=== PATIENT | female | born 1985 | race Caucasian/White ===

== ENCOUNTER → 2020-09-10 | Outpatient (CLI) | payer OTHER ==
[~2020-09-10] MED LIST: CYCL10 PO; DOC250 PO; IBUP800 PO; MULVITMINE PO; ONDA4ODT MM
[2020-09-12 11:10] LABS: HPV 16 Negative (Negative); HPV 18 Negative (Negative); HPV OTHER HR TYPES Negative (Negative)
== END | disposition home or self-care (01) ==
LOC: LAB SHORT 11:20 → LAB 11:20
PROVIDERS: Obstetrics & Gynecology
DX: Z12.4 Encounter for screening for malignant neoplasm of cervix (principal)
CPT/HCPCS: 87624; G0123

== ENCOUNTER 2024-09-22 07:13 | Day surgery (SDC) | payer OTHER ==
[2024-09-22] VITALS (11 sets, daily range): BP systolic 90–112; BP diastolic 53–67
[~2024-09-22] VITALS: Ht 167 cm; Wt 72.6 kg
--- NOTE | 2024-09-22 08:37 | NUR ---
Ambulatory in Day Surgery History, Chart, Medications and Allergies reviewed before start of procedure.Patient confirms NPO status and agrees with scheduled surgery. Patient reports completing Chlorhexadine shower X2 prior to admission to hospital.
[2024-09-22] MEDS ORDERED: CeFAZolin Sodium 2,000 MG in NS 100 ML IV SCH (08:40)
[2024-09-22] MEDS ORDERED: Bupivacaine 0.5% W/EPI 1:200000 SDV 30 ML Vial ONE (10:08)
[2024-09-22] MEDS ORDERED: HYDROmorphone HCl/Pf 1MG SYR ONE ×2 (10:11→10:35)
[2024-09-22] MEDS ORDERED: Rocuronium Bromide 10 MG/ML 5ML Injection IV ONE (10:12)
[2024-09-22] MEDS ORDERED: Midazolam HCl 1MG / ML 2ML Vial ONE (10:12)
[2024-09-22] MEDS ORDERED: FentaNYL Citrate 50 MCG/ML 2 ML Injection ONE (10:12)
[2024-09-22] MEDS ORDERED: Dexamethasone Sod Phos 10 MG/ML 1ML VIAL ONE (10:33)
[2024-09-22] MEDS ORDERED: HYDROmorphone HCl/Pf 1MG SYR IV PRN ×2 (11:00)
[2024-09-22] MEDS ORDERED: Ondansetron HCl 2 MG / ML 2ML Vial IV PRN ×2 (11:00→12:05)
[2024-09-22] MEDS ORDERED: FentaNYL Citrate 50 MCG/ML 2 ML Injection IV PRN ×3 (11:00→12:00)
[2024-09-22] MEDS ORDERED: Ondansetron HCl 2 MG / ML 2ML Vial ONE ×2 (11:31→12:00)
[2024-09-22] MEDS ORDERED: Sugammadex Sodium 200 MG/2ML SDV (100 MG/ML) ONE (11:47)
[2024-09-22] MEDS ORDERED: HYDROcodone 5-APAP 325 TAB PO PRN (12:00)
[2024-09-22] MEDS ORDERED: Ketorolac Tromethamine 30mg Vial IV SCH (12:00)
--- NOTE | 2024-09-22 12:46 | NUR ---
TRANSFER TO UNIT PATIENT ARRIVED FROM PACU VIA GURNEY AT APPROX 1230. PATIENT ALERT - LETHARGIC. EASILY AROUSABLE W/ VERBAL STIMULI BEFORE FALLING BACK TO SLEEP. S/P LAP TOTAL HYSTER. DENIES PAIN - KPAD IN PLACE. BP SOFT - SBP 90s-100s. MAP >65. IVF INFUSING TO GRAVITY. ON ROOM AIR, SATs >90%. X2 INCISION SITES W/ GAUZE AND TEGADERM - C/D/I. SCANT BLEEDING ON LOREN PAD. BELLAMY CATHETER IN PLACE W/ ORDERS TO REMOVE ONCE AMBULATING - DRAINING YELLOW URINE TO GRAVITY. DENIES N/V - SMALL SNACKS AND WATER WITHIN REACH. SPOUSE AT BEDSIDE. CALL LIGHT IN REACH.
[2024-09-22] MEDS ORDERED: IBUP800 PO (12:58)
[2024-09-22] MEDS ORDERED: HYDR1TAB94 PO (12:58)
[2024-09-22 15:28] LABS: BASOPHILS ABSOLUTE AUTO 0.02 K/mm3 (0.00-0.23); BASOPHILS PERCENT AUTO 0 % (0-2); EOSINOPHILS ABSOLUTE AUTO 0.00 K/mm3 (0.00-0.68); EOSINOPHILS PERCENT AUTO 0 % (0-6); Hematocrit 35.6 % (33.0-51.0); Hemoglobin 11.9 g/dL (11.5-16.0); IMMATURE GRAN ABSOLUTE AUTO 0.07 K/mm3 (0.00-0.10); IMMATURE GRAN PERCENT AUTO 1 % (0-1); LYMPHOCYTES ABSOLUTE AUTO 0.49 K/mm3 (0.84-5.20); LYMPHOCYTES PERCENT AUTO 3 % (21-46); MONOCYTES ABSOLUTE AUTO 0.16 K/mm3 (0.16-1.47); MONOCYTES PERCENT AUTO 1 % (4-13); Mean Corpuscular HGB Conc 33.4 g/dL (31.5-36.5); Mean Corpuscular Volume 94 fL (80-100); NEUTROPHILS ABSOLUTE AUTO 13.63 K/mm3 (1.96-9.15); NEUTROPHILS PERCENT AUTO 95 % (41-73); NRBC ABSOLUTE 0.00 K/mm3 (0.00-0.02); NRBC Auto 0.0 /100 WBC (0.0-0.2); Platelet Count 198 K/mm3 (150-400); RDW Coefficient Variation 12.1 % (11.7-14.2); RDW Standard Deviation 42.2 fL (35.1-46.3)
--- NOTE | 2024-09-22 18:04 | NUR ---
DISCHARGE NOTE NO ACUTE CHANGES SINCE ARRIVAL TO UNIT. S/P LAVH. VSS. SBP 90s-100s. MAP >65. BASELINE PER PATIENT. ASYMPTOMATIC. PAIN TOLERABLE AT 3/10 - MANAGING W/ PRESCRIBED THERAPY AND KPAD. X2 LAP SITES W/ GAUZE AND TEGADERM C/D/I. TOLERATING PO INTAKE. BELLAMY CATHETER REMOVED - X1 VOID SINCE REMOVAL. SCANT BLEEDING ON LOREN PAD. AMBULATING. PATIENT MEETS CRITERIA FOR DC PER MD ORDER. IV REMOVED. WRITTEN AND VERBAL EDUCATION PROVIDED - PATIENT AND HER SPOUSE STATE UNDERSTANDING. PERSONAL BELONGINGS W/ PATIENT. PATIENTs SPOUSE TO TRANSFER PATIENT HOME.
[2024-09-23] MEDS ORDERED: Ketorolac Tromethamine 30mg Vial IV PRN (06:00)
== END 2024-09-22 18:10 | disposition home or self-care (01) ==
LOC: ORSCMMR 07:13 → ORD 09:45 → SURS 12:40 → ORSCMMR 18:10
PROVIDERS: Obstetrics & Gynecology
PROC: 0UT7FZZ Resection of Bilateral Fallopian Tubes, Via Natural or Artificial Opening With Percutaneous Endoscopic Assistance (ICD-10-PCS; principal; 2024-09-22 09:45)
PROC: 0UT9FZZ Resection of Uterus, Via Natural or Artificial Opening With Percutaneous Endoscopic Assistance (ICD-10-PCS; principal; 2024-09-22 09:45)
DX: N85.2 Hypertrophy of uterus (principal); N92.0 Excessive and frequent menstruation with regular cycle; R10.2 Pelvic and perineal pain
CPT/HCPCS: 36415; 85025; 88307; A9270; J0690; J1100; J1171; J1885; J2250; J2405; J2704; J3010; J7120